=== PATIENT | female | born 1990 | race African-American/Black ===

== ENCOUNTER 2019-09-11 05:30 | Emergency (ER) | payer MEDICAID, OTHER ==
[~2019-09-11] VITALS: Ht 170.2 cm; Wt 61.0 kg
[2019-09-11 05:37] VITALS: BP 145/93
[2019-09-11] MEDS ORDERED: IBUPROFEN 600MG TABLET PO ONE (06:00)
== END 2019-09-11 07:47 | disposition home or self-care (01) ==
LOC: ER 05:30
DX: J02.9 Acute pharyngitis, unspecified (principal)
CPT/HCPCS: 87070; 87430; 99283